=== PATIENT | female | born 1965 | race Hispanic/Latino ===

== ENCOUNTER 2017-09-24 11:31 | Outpatient (CLI) | payer MEDICARE ==
--- NOTE | 2017-09-24 12:21 | Mammography Report ---
BILATERAL DIGITAL SCREENING MAMMOGRAM with CAD: 09/24/17 11:31:00 CLINICAL: Routine screening. COMPARISON:05/29/16 FINDINGS: The patient has limited ability to stand and limited range of motion and as result positioning is less than optimal, particularly on the left side. The breasts are mostly fatty with a few bilateral upper outer residual fibroglandular densities. No mass, architectural distortion or suspicious calcifications. IMPRESSION: No mammographic evidence of malignancy. BI-RADS CATEGORY: 1 - - Negative RECOMMENDATION: Routine mammographic screening in one year. COMMENT: Patient follow-up letters are generated by our [employer] application.
== END 2017-09-24 11:32 | disposition home or self-care (01) ==
LOC: SPVWC 11:31
PROVIDERS: ATTEND Obstetrics & Gynecology
DX: Z12.31 Encounter for screening mammogram for malignant neoplasm of breast (principal)
CPT/HCPCS: 77067

== ENCOUNTER 2019-04-21 16:02 | Outpatient (CLI) | payer MEDICARE ==
--- NOTE | 2019-04-22 11:52 | Mammography Report ---
DIGITAL SCREENING MAMMOGRAM WITH CAD, 04/21/2019 INDICATION: Routine screening mammography. TECHNIQUE: Digital bilateral 2D mammography was obtained in the craniocaudal and mediolateral obliq ue projections. The examination was performed with the patient in a wheelchair because she has limite d mobility and cannot stand for a mammogram. This examination was interpreted with the benefit of Com puter-Aided Detection analysis. COMPARISON: 09/24/2017 FINDINGS: Breast Density: The breasts are heterogeneously dense, which may obscure small masses. A right outer focal asymmetry requires additional imaging. No architectural distortion or suspicious calcifications of the right breast. There is no evidence of dominant mass, suspicious calcifications or architectural distortion in the left breast. IMPRESSION: Right focal asymmetry requiring additional imaging. Recommend recall for right upper oute r breast ultrasound and additional right mammographic views if needed. Follow up recommendation: Ultrasound Category 0: Incomplete. Needs additional imaging evaluation and/or prior mammograms for comparison. A "normal" or negative report should not discourage follow up or biopsy of a clinically significant f inding. A written summary of these findings will be mailed to the patient. The patient will be entered into a mammography reporting system which will generate a reminder letter for the patient's next appointmen t at the appropriate interval. The [employer] recommends yearly mammograms starting at age 40 and continuing as l cindy as a woman is in good health. Breast MRI is recommended for women with an approximate 20-25% or greater lifetime risk of breast cancer, including women with a strong family history of breast or ova paulino cancer or who have been treated for Hodgkin's disease. Signer Name: Luciano Molina MD Signed: 04/22/2019 11:47 AM Workstation Name: [id number]
== END 2019-04-21 16:03 | disposition home or self-care (01) ==
LOC: SPVWC 16:02
PROVIDERS: ATTEND Obstetrics & Gynecology
DX: Z12.31 Encounter for screening mammogram for malignant neoplasm of breast (principal)
CPT/HCPCS: 77067

== ENCOUNTER 2019-05-06 08:14 | Outpatient (CLI) | payer MEDICARE ==
--- NOTE | 2019-05-06 14:43 | Ultrasound Report ---
RIGHT BREAST ULTRASOUND HISTORY: Recall to evaluate an outer mammographic density. COMPARISON: 04/21/2019 mammogram and 05/17/2015 right breast ultrasound FINDINGS: Sonographic evaluation focused upon the upper outer location of the right breast demonstrat es an oval island of fibroglandular structures at 10:00 13 cm from the nipple which correlates with t he mammographic density. This island of fibroglandular structures is unchanged compared to the 2015 u ltrasound. When comparing mammograms, it is more apparent on the mammogram since more posterior tissu e is included on the last mammogram. IMPRESSION: Probably benign island of fibroglandular structures at 10:00 13 cm from the nipple. Since it is more obvious on the mammogram. Recommend 6 month follow-up right mammogram and right breast ultrasound. BIRADS 3: Probably benign. Signer Name: Luciano Molina MD Signed: 05/06/2019 2:39 PM Workstation Name: [id number]
== END 2019-05-06 08:15 | disposition home or self-care (01) ==
LOC: SPVWC 08:14
PROVIDERS: ATTEND Obstetrics & Gynecology
DX: R92.8 Other abnormal and inconclusive findings on diagnostic imaging of breast (principal); R92.2 Inconclusive mammogram

== ENCOUNTER 2020-05-11 13:10 | Outpatient (CLI) | payer MEDICARE ==
--- NOTE | 2020-05-11 14:53 | Mammography Report ---
DIGITAL SCREENING MAMMOGRAM WITH CAD, 05/11/2020 CLINICAL INFORMATION / INDICATION: Routine screening mammography. SCREENING MAMMO TECHNIQUE: Digital bilateral 2D mammography was obtained in the craniocaudal and mediolateral obliqu e projections. This examination was interpreted with the benefit of Computer-Aided Detection analysis . COMPARISON: Prior mammograms 04/21/2019 and 09/24/2017 FINDINGS: Breast Density: There are scattered areas of fibroglandular density. No dominant mass, suspicious calcifications, or architectural distortion in either breast. There is a stable focal asymmetric density seen in the posterior upper outer quadrant of the right br east. There has been no significant change compared with the prior examinations. IMPRESSION: No mammographic evidence of malignancy. Follow up recommendation: Routine yearly BI-RADS Category 2: Benign. A "normal" or negative report should not discourage follow up or biopsy of a clinically significant f inding. A written summary of these findings will be mailed to the patient. The patient will be entered into a mammography reporting system which will generate a reminder letter for the patient's next appointmen t at the appropriate interval. The [employer] recommends yearly mammograms starting at age 40 and continuing as l cindy as a woman is in good health. Breast MRI is recommended for women with an approximate 20-25% or greater lifetime risk of breast cancer, including women with a strong family history of breast or ova paulino cancer or who have been treated for Hodgkin's disease. Signer Name: Lydia Valdez MD Signed: 05/11/2020 2:48 PM Workstation Name: [id number]
== END 2020-05-11 13:11 | disposition home or self-care (01) ==
LOC: SPVWC 13:10
PROVIDERS: ATTEND Obstetrics & Gynecology
DX: Z12.31 Encounter for screening mammogram for malignant neoplasm of breast (principal)
CPT/HCPCS: 77067

== ENCOUNTER 2021-05-17 11:08 | Outpatient (CLI) | payer MEDICARE | END 2021-05-17 11:09 | disposition home or self-care (01) | LOC: SPVWC 11:08 | PROVIDERS: ATTEND Obstetrics & Gynecology | DX: Z12.31 Encounter for screening mammogram for malignant neoplasm of breast (principal) | CPT/HCPCS: 77067 ==